=== PATIENT | female | born 1940 | race Caucasian/White ===

== ENCOUNTER → 2017-04-13 22:29 | Outpatient (CLI) | payer MEDICARE, OTHER, MEDICAID ==
[2017-01-15 12:21] VITALS: BMI 32.6
[~2017-04-13 22:29] MED LIST: ASCORBIC ACID500 MG PEG; BAYER CHEWABLE81 MG PEG; BROVANA15 MCG/2 M INH; CALCIUM 600+D T1 TA1 PEG; CARAFATE1 G PEG; CATAPRES0.1 MG PEG; CELEBREX200 MG PEG; DOCUSATE S50 MG/5 ML PO; ESTRACE1 MG PEG; FEOSOL LIQ300 MG/5 M PEG; FISH OIL 1,0001 CA1 PEG; GABAPENTIN100 MG PEG; IPRAT-ALBUT 0.5-3 ML UPD; ISOSORBIDE MONO30 M1 PEG; KLONOPIN1 MG PO; LASIX40 MG PEG; LIPITOR10 MG PEG; LUMIGAN 0.01%2.5 ML EACH EYE; MELATONIN 10 M1 EACH PEG; METOPROLOL TART50 MG PEG; METROGEL 0.75 %45 GM TOPICAL; MIRAPEX0.125 MG PEG; MORPHINE IMMEDI15 MG PEG; NITROSTAT0.4 MG SL; NORVASC10 MG PEG; ONCOLOGY MOUTHWA5 ML PO; PEPCID20 MG PEG; POTASSIUM20 MEQ/15 PEG; PRENATAL COMPLE1 TAB PEG; PROBIOTIC1 EAC1 PEG; PROTONIX40 MG PEG; PULMICORT0.5 MG/21 INH; SENNA PLUS TA1 UDTAB PEG; SINEMET 25-1001 EACH PEG; SINEMET CR 50-1 EACH PEG; SINEQUAN50 MG PEG; SINGULAIR10 MG PEG; STELAZINE5 MG PEG; TUMS500 MG PEG; TUSSIONEX PENN473 ML PEG; VIBRAMYCIN 100100 MG PEG; VITAMIN E400 UNI2 PEG; XOPENEX 1.1.25 MG/3 UPD; ZANAFLEX2 M1 PEG; ZOFRAN4 MG PEG
[2017-04-13 22:46] LABS: APPEARANCE CLOUDY (CLEAR); BILIRUBIN NEGATIVE (NEGATIVE); COLOR YELLOW (YELLOW); GLUCOSE NEGATIVE (NEGATIVE); KETONE NEGATIVE (NEGATIVE); LEUKOCYTE ESTERASE 2+ (NEGATIVE); NITRITE NEGATIVE (NEGATIVE); PROTEIN NEGATIVE (NEGATIVE); UROBILINOGEN NORMAL (NORMAL)
[2017-04-13 22:47] LABS: BACTERIA MANY /hpf (NONE SEEN); EPITHELIAL CELLS 0-5 /hpf (0-5); RED CELLS - URINE 0-5 /hpf (0-5)
== END | disposition home or self-care (01) ==
LOC: D.LABREF 22:29
PROVIDERS: Family Medicine
DX: N39.0 Urinary tract infection, site not specified (principal)

== ENCOUNTER 2017-08-14 20:49 | Inpatient (IN) | payer MEDICARE, OTHER, MEDICAID ==
[2017-08-14 22:55] LABS: MCH 31.3 pg (26.0-34.0); MCHC 34.1 g/dL (31.0-37.0); MCV 91.7 fL (80.0-100.0); MEAN PLATELET VOLUME 10.4 fL (7.4-10.4); PLATELET COUNT 268 10x3/uL (130-400); RBC 4.47 10x6/uL (4.00-5.40); RDW 14.7 % (11.5-14.5); WBC 21.1 10x3/uL (4.8-10.8)
[2017-08-14 23:01] LABS: ALBUMIN 3.2 g/dL (3.4-5.0); ALKALINE PHOSPHATASE 130 U/L (46-116); ALT (SGPT) 23 U/L (10-68); BILIRUBIN - TOTAL 0.66 mg/dL (0.2-1.3); CALC OSMOLALITY 278 mosm/kg (275-300); CALCIUM 9.3 mg/dL (8.5-10.1); CHLORIDE - SERUM 100 mmol/L (98-107); CREATININE - SERUM 0.9 mg/dL (0.6-1.3); GLUCOSE 133 mg/dL (74-106); POTASSIUM - SERUM 3.7 mmol/L (3.5-5.1); PROTEIN - SERUM 7.4 g/dL (6.4-8.2); SODIUM 138 mmol/L (136-145); UREA NITROGEN 14 mg/dL (7-18); eGFR NON AFRICAN AMERICAN 64 mL/min (90-120)
[2017-08-14 23:09] LABS: AMYLASE - SERUM 24 U/L (25-115); LIPASE 93 U/L (73-393); PRO BNP 198 pg/mL (0-450)
[2017-08-14 23:12] LABS: TROPONIN-I < 0.017 ng/mL (0.000-0.060)
[2017-08-14 23:31] LABS: EOSINOPHILS 1 % (0-7); LYMPHOCYTES 14 % (15-50); MONOCYTES 5 % (2-11); NEUTROPHILS 76 % (40-80); PLATELET ESTIMATE NORMAL
[2017-08-14 23:56] LABS: APPEARANCE CLEAR (CLEAR); BILIRUBIN NEGATIVE (NEGATIVE); COLOR YELLOW (YELLOW); GLUCOSE NEGATIVE (NEGATIVE); KETONE NEGATIVE (NEGATIVE); NITRITE NEGATIVE (NEGATIVE); PROTEIN NEGATIVE (NEGATIVE); SPECIFIC GRAVITY 1.005 (1.005-1.020); UROBILINOGEN NORMAL (NORMAL)
[2017-08-14 23:57] LABS: BACTERIA NONE SEEN /hpf (NONE SEEN); EPITHELIAL CELLS 0-5 /hpf (0-5); RED CELLS - URINE NONE SEEN /hpf (0-5); WHITE CELLS - URINE 0-5 /hpf (0-5)
--- NOTE | 2017-08-15 01:20 | NUR ---
RECEIVED FROM ER, WILL ASSUME CARE OF PT, [id number], 02-3L, IV-L.CHEST-PORT, BED IS LOW, SRX2, CALL LIGHT IN REACH, PLACE ON FALL PER CAUTION, SCD ARE ON, WILL CONTINUE PLAN OF CARE
[2017-08-15] MEDS ORDERED: ENULOSE10 G/15 ML PO (01:40)
[2017-08-15] MEDS ORDERED: HYDROCODONE-APA1 TAB PT (01:41)
[2017-08-15] MEDS ORDERED: FLUTICASONE PRO16 GM NASAL (01:42)
[2017-08-15 03:26] VITALS: BMI 27.5
[2017-08-15 04:00] VITALS: BP 139/69
--- NOTE | 2017-08-15 07:14 | NUR ---
AM ROUNDS- PT IN BED, STATES THAT SHE NEEDS TO BE CLEANED UP, RESP EVEN AND UNLABORED, LT CHEST PORT SL. PT DENIES ANY OTHER NEEDS AT THIS TIME. BED LOW AND WHEELS LOCKED, BEDSIDE RAILS X2, CALL LIGHT IN REACH, NAD NOTED, WILL CONTINUE TO MONITOR. 0720- PROVIDED INCONT CARE FOR INCONT EPISODE. PINK PAD, TOP SHEET, BLANKET, AND GOWN CHANGED AT THIS TIME. DELIVERY DRIVER/SUPERVISOR'S AT BEDSIDE TO DO VITAL SIGNS, NAD NOTED, WILL CONTINUE TO MONITOR.
[2017-08-15 08:16] VITALS: BP 148/57
--- NOTE | 2017-08-15 08:16 | NUR ---
TOP FRAME MAKER REPORTED TEMP OF 100.2, HAD TOP FRAME MAKER APPLY WET WASH CLOTH TO FOREHEAD. WILL CHECK TEMP LATER.
[2017-08-15 11:45] VITALS: BP 153/83
[2017-08-15] MEDS ORDERED: ZANAFLEX2 M1 PEG (12:46)
[2017-08-15] MEDS ORDERED: SINEQUAN50 MG PEG (12:47)
[2017-08-15] MEDS ORDERED: FERROUS SULFAT325 MG PEG (12:48)
[2017-08-15] MEDS ORDERED: SINGULAIR10 MG PEG (12:49)
[2017-08-15] MEDS ORDERED: BROVANA15 MCG/2 M INH (12:49)
[2017-08-15] MEDS ORDERED: PULMICORT0.5 MG/21 INH (12:52)
[2017-08-15] MEDS ORDERED: ATROVENT 0.02%2.5 ML UPD (12:54)
[2017-08-15] MEDS ORDERED: ZOFRAN4 MG PEG (12:55)
[2017-08-15] MEDS ORDERED: VITAMIN E400 UNI2 PEG (12:56)
[2017-08-15] MEDS ORDERED: CALCIUM 600 +1 EAC3 PEG (12:57)
[2017-08-15] MEDS ORDERED: FISH OIL 1,0001 CA1 PEG (12:58)
[2017-08-15] MEDS ORDERED: ASCORBIC ACID500 MG PO (12:58)
[2017-08-15] MEDS ORDERED: SENNA LAXATIVE8.6 MG PEG (13:14)
[2017-08-15] MEDS ORDERED: MUCUS RELIEF400 MG PEG (13:14)
[2017-08-15] MEDS ORDERED: PROBIOTIC1 EAC1 PEG (13:15)
[2017-08-15 13:31] LABS: CALCIUM 8.1 mg/dL (8.5-10.1); CARBON DIOXIDE 25.2 mmol/L (21.0-32.0); CHLORIDE - SERUM 101 mmol/L (98-107); CKMB 0.5 U/L (0.0-3.6); CREATINE KINASE 26 UL (21-215); GLUCOSE 125 mg/dL (74-106); POTASSIUM - SERUM 3.7 mmol/L (3.5-5.1); SODIUM 135 mmol/L (136-145)
[2017-08-15 13:34] VITALS: BMI 27.4
[2017-08-15 13:40] LABS: CALC OSMOLALITY 269 mosm/kg (275-300); CREATININE - SERUM 0.6 mg/dL (0.6-1.3); TROPONIN-I < 0.017 ng/mL (0.000-0.060); UREA NITROGEN 10 mg/dL (7-18); eGFR NON AFRICAN AMERICAN > 90 mL/min (90-120)
--- NOTE | 2017-08-15 13:51 | NUR ---
1.5 CANS OF JEVITY 1.2 GIVEN AT THIS TIME. BY GRAVITY, PT TOLERATED FEEDING FINE. ALSO PROVIDED DRESSING CHANGE TO PEG TUBE SITE. REDNESS NOTED TO SITE, YELLOW DISCHAGE FROM SITE. CLEANED SITE WITH WOUND CONSTRUCTION ADMINISTRATOR AND COVERED WITH 4X4 GAUZE AND TAPE. PT PLACED ON TRIOLOGY BY SON, WHO STATES PT NEEDS TO BE ON TRIOLOGY FOR MOST OF THE DAY, ON 3L WHEN NOT USING TRIOLOGY. PT DENIES ANY NEEDS AT THIS TIME. CALL LIGHT IN REACH, NAD NOTED, WILL CONTINUE TO MONITOR.
[2017-08-15 14:10] LABS: BASOPHILS 0.2 % (0-2); EOSINOPHILS 0.8 % (0-7); HEMATOCRIT 41.3 % (36.0-48.0); IMMATURE GRANULOCYTES 0.4 % (0-5); LYMPHOCYTES 8.1 % (15-50); MCH 30.8 pg (26.0-34.0); MCHC 33.9 g/dL (31.0-37.0); MEAN PLATELET VOLUME 10.2 fL (7.4-10.4); NEUTROPHILS 83.5 % (40-80); RBC 4.54 10x6/uL (4.00-5.40); RDW 14.6 % (11.5-14.5)
[2017-08-15 14:13] LABS: PLATELET COUNT 182 10x3/uL (130-400); WBC 12.8 10x3/uL (4.8-10.8)
--- NOTE | 2017-08-15 15:15 | NUR ---
IVPB DOXYCYCLINE HUNG AT THIS TIME, SOLU- MEDROL GIVEN ORDERED. PT DENIES ANY NEEDS AT THIS TIME. TRIOLOGY IN USE. NAD NOTED, WILL CONTINUE TO MONITOR.
[2017-08-15 16:00] VITALS: BP 157/77
--- NOTE | 2017-08-15 16:01 | NUR ---
650MG OF TYLENOL GIVEN FOR TEMP OF 101.7, VIA PEG TUBE. ALSO PLACED A WET WASHCLOTH TO PT'S FOREHEAD. PT DENIES ANY NEEDS AT THIS TIME. CALL LIGHT IN REACH, NAD NOTED, WILL CONTINUE TO MONITOR.
--- NOTE | 2017-08-15 18:25 | NUR ---
TEMP NOW 98.5 AFTER TYLENOL WAS GIVEN. PT IN BED, TRIOLOGY IN USED. PT DENIES ANY NEEDS AT THIS TIME. CALL LIGHT IN REACH, NAD NOTED, WILL CONTINUE TO MONITOR.
[2017-08-15 19:03] LABS: CREATINE KINASE 19 UL (21-215); TROPONIN-I < 0.017 ng/mL (0.000-0.060)
--- NOTE | 2017-08-15 19:32 | NUR ---
PT ASLEEP. RESPIRATIONS EVEN AND UNLABORED. RR 28. PT ON 3L BIPAP. BED LOW AND CALL LIGHT IN REACH. SCD'S PUT ON BILATERAL LOWER EXTREM. PT HAS NO S//S OF DISTRESS. WILL CPOC
[2017-08-15 20:00] VITALS: BP 159/74
--- NOTE | 2017-08-15 21:37 | NUR ---
PT AAO X4. PT ASKED FOR BEDPAN TO URINATE. URINE SAMPLE COLLECTED. PT WASHING FACE OFF WITH COOL WASHCLOTH. PT SWEATING/ HAS SWEAT ON PILLOW AND HAIR ON BACK OF HEAD. PT HAS 3L OF O2 NC. WILL PUT BIPAP BACK ON IN A MOMENT. PT DENIES ANY NEEDS. CRUSHING MEDS TO ADMINISTER THROUGH PEG. PT HAS NO S/S OF DISTRESS. WILL CPOC
--- NOTE | 2017-08-15 22:49 | NUR ---
PT RESIDUAL CHECK, 120ML. WILL HOLD MEDS UNTIL BELOW 100ML. PULLED PT UP IN BED AND RAISED PT HOB TO 50. PT TOOK OF BIPAP. 3L OF O2 NC. PT INFUSAPORT TO LEFT CHEST PATENT. DRSG CDI. WILL RECHECK RESIDUAL FROM PEG TUBE IN AN HOUR. WILL UPDATE EMAR OF SITUATION. PT ONLY NEED IS SOMETHING FOR HER HEAD HEATH. WILL CHECK ORDERS. PT HAS NO S/S OF DISTRESS. BED LOW AND CALL LIGHT IN REACH. WILL CPOC
--- NOTE | 2017-08-15 23:37 | NUR ---
PT RESIDUAL IS 140ML. STILL HOLDING MEDS. WILL SPEAK AGAIN WITH CHARGE NURSE YURY PERALTA. ABOUT NEXT STEPS. PT HAS BIPAP BACK ON . RESPIRATIONS UNLABORED. UNEVEN. PT DENIES ANY NEEDS. WILL CPOC
--- NOTE | 2017-08-16 00:34 | NUR ---
SPOKE WITH CHARGE NURSE YURY REGARDING THE RESIDUAL. WENT THROUGH MEDS AND PICKED ONLY PRIORITY MEDS. WILL LIST AT END OF NOTE. WASTED MEDS THAT WERE ALREADY CRUSHED R/T THE AMOUNT OF WATER. RECRUSHED THESE SELECTED MEDS. AND ADMINISTERED WITH 60ML TOTAL. AND FLUSHED WITH 30ML TOTAL. WILL RECHECK RESIDUAL. GAVE PT ORAL CARE. SWAB TO MOIST MOUTH AND A MOUTH MOISTURIZER. PT DENIES ANY OTHER NEEDS AT THIS TIME. PT SWITCHED BACK TO 3L NC. SCD'S ON BILATERAL. HOB 30. ROCEPHIN DONE. INFUSAPORT FLUSHED AND S/L. PT HAS NO S/S OF DISTRESS. WILL CPOC MEDS GIVEN ARE:KLONOPIN, CATAPRES, LOPRESSOR. STELAZINE, SINEMET, SINEQUAN. AND TYLENOL.
[2017-08-16 02:33] LABS: CREATINE KINASE 24 UL (21-215); TROPONIN-I < 0.017 ng/mL (0.000-0.060)
[2017-08-16 04:00] VITALS: BP 148/83
[2017-08-16 05:24] LABS: ANION GAP 12.8 mmol/L (8-16); CALCIUM 9.3 mg/dL (8.5-10.1); CARBON DIOXIDE 25.2 mmol/L (21.0-32.0)
[2017-08-16 05:28] LABS: BASOPHILS 0 % (0-2); EOSINOPHILS 0.1 % (0-7); HEMATOCRIT 40.8 % (36.0-48.0); IMMATURE GRANULOCYTES 0.2 % (0-5); LYMPHOCYTES 8.9 % (15-50); MCH 30.6 pg (26.0-34.0); MCHC 34.3 g/dL (31.0-37.0); MCV 89.3 fL (80.0-100.0); MEAN PLATELET VOLUME 10.2 fL (7.4-10.4); MONOCYTES 0.8 % (2-11); PLATELET COUNT 213 10x3/uL (130-400); RBC 4.57 10x6/uL (4.00-5.40); RDW 14.4 % (11.5-14.5); WBC 9.6 10x3/uL (4.8-10.8)
[2017-08-16 05:38] LABS: CREATININE - SERUM 0.8 mg/dL (0.6-1.3)
--- NOTE | 2017-08-16 06:46 | NUR ---
PT RESIDUAL 19ML GAVE PT CARAFATE AND SOLU-MED ORDERED. PT WANTS BIPAP OFF. PT ON 3L NC. PT DENIES ANY NEEDS. NO S/S OF DISTRESS. WILL CPOC
--- NOTE | 2017-08-16 07:30 | NUR ---
REPORT RECIEVED. RR EVEN AND UNLABORED. PT IS DIFFIUCLT TO UNDERSTAND AT TIMES, BUT IS ALERT AND ORIENTED X4. WILL CTM.
[2017-08-16 08:00] VITALS: BP 144/75
--- NOTE | 2017-08-16 08:52 | NUR ---
GAVE PT INTERNAL FEEDING AND MEDS. CHECKED RESIDUAL PRIOR TO ADMINISTRATION. LESS THAN 20MLS NOTED RESIDUAL. PT REPORTS "FEELING HUNGRY." WILL CTM.
[2017-08-16 12:00] VITALS: BP 134/70
--- NOTE | 2017-08-16 13:00 | NUR ---
PT INSTRUCTED THAT URINE SAMPLE NEEDED. EXPLAINED HOW TO COMPLETE AND OBTAIN SPECIMEN.
--- NOTE | 2017-08-16 14:23 | NUR ---
PTS FAMILY MEMBER (SON) APPROACHED NURSES STATION REQUESTING PT UPDATE. GAVE GENERAL UPDATE ON PT STATUS PER MY ASSESSMENT. REQUESTED TO KNOW X-RAY RESULTS, READ RESULTS TO FAMILY MEMBER. WILL CTM.
[2017-08-16 16:00] VITALS: BP 152/95
--- NOTE | 2017-08-16 17:52 | NUR ---
PT RESTING QUIETLY, RR EVEN AND UNLABORED. RESIDUAL CHECKED PRIOR TO ADMINISTERING EVENING FEED, LESS THAN 10 RESIDUAL NOTED. WILL GIVE REPORT ON PT CONDTION FOR THE DAY.
--- NOTE | 2017-08-16 19:32 | NUR ---
PT RESTING IN BED. HEAD DOWN WITH NO PILLOW UNDER HEAD. FEET ELEVATED. ASKED PT IF I COULD STRAIGHTEN HER UP IN BED AND MAKE HER COMFORTABLE. PT STATED SHE IS COMFORTABLE AND DOESNT WANT TO MOVE BECAUSE HER NECK HURTS. PT STATES SHE TAKES NORCO BID AT HOME. PT IS ON 3L NC. TOLD PT I WILL BRING HER TYLENOL WILL 2100 MEDS. OFFERED PT ICE AND HEAT SHE DECLINED BOTH. PT HAS NO S/S OF DISTRESS. WILL CPOC
[2017-08-17 04:00] VITALS: BP 157/68
--- NOTE | 2017-08-17 06:18 | NUR ---
PT ASLEEP. RESPIRATIONS 28. SHALLOW. EVEN AND UNREGULAR. PT HAS TECH IN ROOM TO OBTAIN VIATLS. PT WAKES TO VERBAL STIMULA. PT DENIES ANY NEEDS. NO S/S OF DISTRESS. WILL CPOC
--- NOTE | 2017-08-17 06:30 | NUR ---
TOOK PT OFF OF BYPAP. PUT ON 3L NC. PT STILL C/O PAIN IN NECK. TOLD PT I WILL HAVE ONCOMING NURSE TALK WITH CLIVE WHEN SHE GETS HERE ABOUT SOMETHING FOR PAIN. PT STATES IT HURTS AND NEEDS NORCO. OFFERED PT ICE AND HEAT. SHE DECLINED. WILL PASS IN REPORT PAIN MANAGEMENT COMPLICATION. PT HAS NO S/S OF DISTRESSS. WILL CPOC
[2017-08-17 06:57] LABS: BASOPHILS 0 % (0-2); EOSINOPHILS 0 % (0-7); HEMATOCRIT 39.3 % (36.0-48.0); HEMOGLOBIN 13.2 g/dL (12-16); IMMATURE GRANULOCYTES 0.3 % (0-5); MCH 30.8 pg (26.0-34.0); MCHC 33.6 g/dL (31.0-37.0); MEAN PLATELET VOLUME 9.9 fL (7.4-10.4); MONOCYTES 2.5 % (2-11); NEUTROPHILS 90.2 % (40-80); RBC 4.29 10x6/uL (4.00-5.40); RDW 14.4 % (11.5-14.5)
[2017-08-17 06:59] LABS: MCV 91.6 fL (80.0-100.0); PLATELET COUNT 268 10x3/uL (130-400); WBC 17.9 10x3/uL (4.8-10.8)
[2017-08-17 07:07] LABS: ANION GAP 10.5 mmol/L (8-16); CALCIUM 9.6 mg/dL (8.5-10.1); CARBON DIOXIDE 30.9 mmol/L (21.0-32.0); CREATININE - SERUM 0.9 mg/dL (0.6-1.3); POTASSIUM - SERUM 4.4 mmol/L (3.5-5.1)
--- NOTE | 2017-08-17 07:20 | NUR ---
REPORT RECIVED. RR EVEN AND UNLABORED. PT DENIES NEEDS AT THIS TIME. PT RESTING QUILETY, WILL CTM.
[2017-08-17 08:00] VITALS: BP 129/61
[2017-08-17 12:00] VITALS: BP 124/59
--- NOTE | 2017-08-17 12:20 | NUR ---
240 OF FEED GIVEN, RESIDUAL IS 160. CALLED DIETARY AND VERIFIED NEED TO HOLD FEED FOR RESIDUAL. REPORTED THAT IT WAS FINE IF I GAVE 1 CAN OF FEED.
--- NOTE | 2017-08-17 14:30 | NUR ---
CHANGED DRESSING AROUND PEG TUBE. APPLIED 4X4 AND TAPE. INITIALED AND DATED.
--- NOTE | 2017-08-17 15:42 | NUR ---
Patient Name: COMFORT DHILLON Admission Status: ER Accout number: [id number] Admission Date: 08-14-2017 : 1940 Admission Diagnosis:SHORTNESS OF BREATH Attending: ARIANA MILLS Current LOS: 3 Anticipated DC Date: Planned Disposition: Home WITH HOME HEALTH Primary Insurance: MEDICARE A & B PLANNED EXTERNAL PROVIDER: [facility] Discharge Planning Comments: * Is the patient Alert and Oriented? Yes 0 * How many steps to enter\exit or inside your home? 2 W/RAMP 0 * PCP DR. BARCENAS 0 * Pharmacy [facility] 0 * Preadmission Environment Home Alone 0 * ADLs Independent 0 * Equipment Cane Nebulizer Rolling Walker 0 * Other Equipment HOME AND PORTABLE OXYGEN [facility] - MEDICAL EQUIPMENT PROVIDER PREFERNECE 0 * List name and contact numbers for known caregivers / representatives who currently or will assist patient after discharge: MYA LEE, SON/POA, 0 * Community resources currently utilized Home Health Private Duty Care 0 * Please name any agencies selected above. [facility], 7 DAYS PER WEEK, ABOUT 6 HOURS PER DAY, 4 ON WEEKEND DAYS. 0 * Additional services required to return to the preadmission environment? No 0 * Can the patient safely return to the preadmission environment? Yes 0 * Has this patient been hospitalized within the prior 30 days at any hospital? No 0 CM MET WITH PT IN ROOM TO DISCUSS DISCHARGE PLANNING AND NEEDS. PT REPORTS LIVING AT HOME INDEPENDENTLY AND ALONE. PT REPORTS HAVING PERSONAL CARE WITH SUPERIOR DAILY FOR ABOUT 6 HOURS AND ABOUT 4 HOURS ON WEEKEND DAYS. PT HAS ALL NEEDED MEDICAL EQUIPMENT FROM [facility] AND HAS [facility] FOR NURSING ONLY. PT HAS CM DISCUSSED AVAILABILITY OF HOME HEALTH, REHAB SERVICES AND MEDICAL EQUIPMENT. PT REPORTS PLANS TO GO HOME WITH CONTINUED HOME HEALTH AND PERSONAL CARE; PT DENIES NEED OF REHAB SERVICES. PT REPORTS HER NEIGHBOR WILL PICK HER UP FOR DISCHARGE HOME. IMPORTANT MESSAGE FROM MEDICARE PROVIDED AND EXPLAINED. FOR DISCHARGE, NOTIFY [facility] AT [phone]; FAX DISCHARGE INFORMATION TO [facility] AT [phone]. Gasoline Pump Installer: Charles Murphy
[2017-08-17 16:00] VITALS: BP 137/73
--- NOTE | 2017-08-17 16:00 | NUR ---
SPOKE TO PTS FAMILY MEMEBER ABOUT PT CONDITION. READ FAMILY MEMEBER RESULTS OF LABS PER REQUEST. GAVE A QUICK UPDATE ON PT CONDITION PER REQUEST. WILL CTM.
--- NOTE | 2017-08-17 18:14 | NUR ---
PT RESTING QUIETLY, RR EVEN AND UNLABORED. PT DENIES NEEDS AT THIS TIME. WILL GIVE REPORT ON PT CONDITION FOR THE DAY.
--- NOTE | 2017-08-17 19:37 | NUR ---
PT ASLEEP. RESPIRATIONS EVEN AND UNLABORED. PT ON 3L NC. NS WITH ANTIBIOTIC RUNNING AT 100 TO LEFT INFUSAPORT. PT BED IS LOW AND CALL LIGHT IN REACH. WILL CPOC
--- NOTE | 2017-08-18 00:20 | NUR ---
PT HAD AN INCONT EPISODE. PT CHANGED. CLEAN PAD AND GOWN. PT CLEANED. PULLED PT UP IN BED AND REPOSITIONED TO THE RIGHT. PT C/O PORT ACCESS. AREA MORE SWOLLEN THAN YESTURDAY. PORT FLUSHES PERFECTLY. PORT DOES NOT DRAW BACK, BUT NEVER DID. PUT WARM COMPRESS ON AREA TO SEE IF SWELLING WILL DECREASE. PT HAS VIBRO AT 0300. I AM CONCERNED THAT PORT COULD BE MALFUNCTIONING. MACHINIST JOB SETTER NOTIFIED. SHE STATED TO PUT THE WARM COMPRESS AND CHECK ABOUT IV ACCESS. WILL ASK PT ABOUT IV ACCESS AND TRY AND OBTAIN ACCESS SOON ABLE. PT DENIES ANY NEEDS. NO S/S OF DISTRESS. WILL CPOC PUT SCD'S ON BILATERAL LOWER EXTREM
--- NOTE | 2017-08-18 00:24 | NUR ---
PUT PT BIPAP ON. PT DENIES ANY NEEDS. STILL C/O LEFT BREAST PAIN. WILL CPOC
[2017-08-18 01:53] VITALS: BP 136/65
[2017-08-18 06:01] VITALS: BP 103/52
--- NOTE | 2017-08-18 06:42 | NUR ---
PT SITTING UP IN CHAIR. PT DENIES ANY NEEDS. CALL LIGHT IN REACH. WILL CPOC
[2017-08-18 07:15] LABS: BASOPHILS 0 % (0-2); EOSINOPHILS 0 % (0-7); HEMATOCRIT 41.7 % (36.0-48.0); HEMOGLOBIN 13.8 g/dL (12-16); IMMATURE GRANULOCYTES 0.4 % (0-5); LYMPHOCYTES 7.6 % (15-50); MCH 30.9 pg (26.0-34.0); MCHC 33.1 g/dL (31.0-37.0); MCV 93.3 fL (80.0-100.0); MEAN PLATELET VOLUME 10.4 fL (7.4-10.4); MONOCYTES 1.9 % (2-11); NEUTROPHILS 90.1 % (40-80); PLATELET COUNT 263 10x3/uL (130-400); RBC 4.47 10x6/uL (4.00-5.40); RDW 14.2 % (11.5-14.5); WBC 14.2 10x3/uL (4.8-10.8)
[2017-08-18 07:22] LABS: ANION GAP 9.5 mmol/L (8-16); CALCIUM 9.5 mg/dL (8.5-10.1); CARBON DIOXIDE 29.9 mmol/L (21.0-32.0); CREATININE - SERUM 0.8 mg/dL (0.6-1.3); POTASSIUM - SERUM 4.4 mmol/L (3.5-5.1)
[2017-08-18 08:19] VITALS: BP 115/60
--- NOTE | 2017-08-18 08:45 | NUR ---
AM ROUNDS - PT SITTING UP IN THE CHAIR AT THIS TIME. MONITOR SHOWING SB, HR 56. PT REFUSSES SCD. LEFT CHEST PORT. 3L O2 VIA NC. BED AT LOWEST POSITION. CALL BEAR IN USE/REACH. SIDE RAILS UP X2. NO NEEDS AT [facility] TIEM. WILL CONTINUE TO MONITOR
[2017-08-18 11:46] VITALS: BP 125/53
--- NOTE | 2017-08-18 12:26 | NUR ---
BREAKFAST - 1.5 CANS OF JEVITY 1.2. CHECKED RESIDUAL BEFORE, 6CC. WILL CONTINUE TO MONITOR
--- NOTE | 2017-08-18 12:28 | NUR ---
LUNCH - CHECKED RESIDUAL AND GOT BACK 55CC. DID NOT GIVE THE 1.5 CANS OF JEVITY 1.2 AT THIS TIME. WILL CONTINUE TO MONITOR
--- NOTE | 2017-08-18 14:58 | NUR ---
PT GOT BACK INTO THE BED. STATES SHE FEELS GOOD ENOUGH TO GO HOME. NO NEEDS AT THIS TIME. WILL CONTINUE TO MONITOR
[2017-08-18 16:01] VITALS: BP 121/56
[2017-08-18 20:00] VITALS: BP 125/61
[2017-08-19] VITALS: BP 132/67
[2017-08-19 04:00] VITALS: BP 141/69
[2017-08-19 06:58] LABS: BASOPHILS 0.1 % (0-2); EOSINOPHILS 0 % (0-7); HEMATOCRIT 41.2 % (36.0-48.0); HEMOGLOBIN 13.5 g/dL (12-16); IMMATURE GRANULOCYTES 0.3 % (0-5); MCH 30.8 pg (26.0-34.0); MCHC 32.8 g/dL (31.0-37.0); MCV 93.8 fL (80.0-100.0); MEAN PLATELET VOLUME 10.1 fL (7.4-10.4); MONOCYTES 2.9 % (2-11); NEUTROPHILS 86.7 % (40-80); RBC 4.39 10x6/uL (4.00-5.40); RDW 13.7 % (11.5-14.5)
[2017-08-19 07:00] LABS: PLATELET COUNT 150 10x3/uL (130-400); WBC 9.2 10x3/uL (4.8-10.8)
[2017-08-19 07:09] LABS: CALC OSMOLALITY 286 mosm/kg (275-300); CALCIUM 9.1 mg/dL (8.5-10.1); CARBON DIOXIDE 24.2 mmol/L (21.0-32.0); CHLORIDE - SERUM 104 mmol/L (98-107); CREATININE - SERUM 0.7 mg/dL (0.6-1.3); POTASSIUM - SERUM 4.4 mmol/L (3.5-5.1); SODIUM 136 mmol/L (136-145); UREA NITROGEN 29 mg/dL (7-18); eGFR NON AFRICAN AMERICAN 86 mL/min (90-120)
[2017-08-19 07:10] LABS: GLUCOSE 267 mg/dL (74-106)
--- NOTE | 2017-08-19 07:10 | NUR ---
RECEIVED REPORT. ASSUMED CARE OF PATIENT. RESTING WELL WITH EYES CLOSED. RECEIVING BREATHING TX AT THIS TIME. RESP EVEN AND UNLABORED. EASILY AROUSED. NO DISTRESS.
--- NOTE | 2017-08-19 07:55 | NUR ---
BOLUS FEEDING COMPLETE AT THIS TIME. 1.5 CANS OF JEVITY 1.2 ADMINISTERED ORDERED. PLACEMENT VERIFIED BY ASPIRATION AND ASCULATION. 3 ML RESIDUAL. TOLERATED FEEDING WELL. PATIENT REMAINS SITTING UP IN BED AT THIS TIME AFTER COMPLETING BOLUS.
[2017-08-19 07:58] VITALS: BP 176/85
[2017-08-19 11:14] VITALS: BP 124/61
--- NOTE | 2017-08-19 11:58 | NUR ---
ASSISTED OOB TO CHAIR AT BEDSIDE. TOLERATED BOLUS WELL. ONLY ONE CAN OF JEVITY 1.2 ADMINISTERED DUE TO 30 CC RESIDUAL. NO DISTRESS. CALL LIGHT AND ALL PERSONAL ITEMS PLACED WITHIN REACH. IV ABX INFUSING AT THIS TIME.
--- NOTE | 2017-08-19 12:35 | NUR ---
PATIENT UP AMBULATING IN ROOM, OXYGEN, IV TUBING, PHONE CORD ALL TANGLED. UNTANGLED LINES. ASSISTED PATIENT TO RESTROOM AND WITH INCONTINENT CARE. PATIENT SITTING TO CHAIR AT BEDSIDE AT THIS TIME. NO DISTRESS.
--- NOTE | 2017-08-19 15:07 | NUR ---
PATIENT COMPLAINING THAT SHE IS HUNGRY. RESIDUAL CHECK. ZERO RESIDUAL. ONE CAN OF JEVITY 1.2 GIVEN AT THIS TIME. PATIENTS SON ALSO CALLED TO CHECK ON HER BECAUSE SHE CALLED HIM AND STATED SHE WAS HUNGRY. NO DISTRESS. SITTING IN CHAIR AT BEDSIDE. PATIENT STATES SHE FEELS BETTER AFTER GETTING THE CAN OF JEVITY 1.2
[2017-08-19 16:18] VITALS: BP 121/56
--- NOTE | 2017-08-19 16:41 | NUR ---
TOLERATED FEEDING WELL. ASSISTED PATIENT TO BED. PATIENT RESTING WHILE IN 45 DEGREE ANGLE AT THIS TIME AFTER BEING FED. NO DISTRESS. RESP EVEN AND UNALBORED.
--- NOTE | 2017-08-19 18:17 | NUR ---
RESTING IN BED ON LEFT LATERAL SIDE WITH EYES CLOSED. NO DISTRESS. EASILY AROUSED.
--- NOTE | 2017-08-19 19:10 | NUR ---
RECIEVED SHIFT REPORT. PT IS SITTING UP IN CHAIR. ALERT AND ORIENTED AND ABLE TO VERBALIZE NEEDS. IV IS PATENT AND FLUIDS RUNNING AT KVO. PT REFUSES SCD'S. PT IS AMBULATORY WITH ASSISTANCE. PEG TUBE PATENT WITH SITE C/D/I. PT DENIES ANY PAIN AT THIS TIME. O2 @ 2 PER NASAL CANNULA. NO NEEDS ARE VERBALIZED AT THIS TIME. WILL CONTINUE TO MONITOR. SIDE RAILS ARE UP X 2. BED IS IN LOWEST POSITION. BED ALARM ON FOR SAFETY. CALL LIGHT IS WITHIN REACH.
[2017-08-19 20:00] VITALS: BP 152/71
--- NOTE | 2017-08-19 21:56 | NUR ---
SHIFT ASSESSMENT COMPLETED. NIGHT MEDS GIVEN CRUSHED IN PEG TUBE WITH NO PROBLEMS. NO RESIDUAL AT THIS TIME. BOLUS FEEDING DONE PER ORDER. PT TOLERATED WELL. NO NEEDS ARE VOICED. WILL MONITOR. SIDE RAILS X 2. BED LOW. BED ALARM ON. CALL LIGHT IN REACH.
[2017-08-20 04:00] VITALS: BP 135/61
[2017-08-20 06:07] LABS: BASOPHILS 0 % (0-2); EOSINOPHILS 0 % (0-7); HEMATOCRIT 38.7 % (36.0-48.0); HEMOGLOBIN 13.2 g/dL (12-16); IMMATURE GRANULOCYTES 0.6 % (0-5); LYMPHOCYTES 14.3 % (15-50); MCH 30.3 pg (26.0-34.0); MCHC 34.1 g/dL (31.0-37.0); MCV 88.8 fL (80.0-100.0); MEAN PLATELET VOLUME 10.3 fL (7.4-10.4); NEUTROPHILS 76.1 % (40-80); RBC 4.36 10x6/uL (4.00-5.40); RDW 13.1 % (11.5-14.5); WBC 11.2 10x3/uL (4.8-10.8)
[2017-08-20 06:08] LABS: PLATELET COUNT 115 10x3/uL (130-400)
[2017-08-20 06:17] LABS: CALCIUM 8.8 mg/dL (8.5-10.1); CARBON DIOXIDE 27.5 mmol/L (21.0-32.0); CHLORIDE - SERUM 102 mmol/L (98-107); CREATININE - SERUM 0.6 mg/dL (0.6-1.3); POTASSIUM - SERUM 4.2 mmol/L (3.5-5.1); SODIUM 137 mmol/L (136-145); eGFR NON AFRICAN AMERICAN > 90 mL/min (90-120)
[2017-08-20 06:18] LABS: CALC OSMOLALITY 281 mosm/kg (275-300); GLUCOSE 188 mg/dL (74-106); UREA NITROGEN 20 mg/dL (7-18)
--- NOTE | 2017-08-20 07:07 | NUR ---
AM ROUNDS- PT IN BED, WITH EYES CLOSED RECEIVING UPDRAFT. EASILY AROUSES, PT DENIES ANY NEEDS AT THIS TIME. RESP EVEN AND UNLABORED. LT INFUSAPORT INFUSING NS AT KVO. BED LOW AND WHEELS LOCKED, BEDSIDE RAILS X2, CALL LIGHT IN REACH, NAD NOTED, WILL CONTINUE TO MONITOR.
[2017-08-20 08:00] VITALS: BP 140/61
--- NOTE | 2017-08-20 09:18 | NUR ---
AM MEDS GIVEN VIA PEG TUBE. ALSO PROVIDED 1.5 CANS OF JEVITY 1.2CAL AT THIS TIME. PT TOLERATED FEEDING AND MEDS WELL. CHECKED FOR RESIDUAL AT THE BEGINNING, ZERO RESIDUAL. PT IN BED, DENIES ANY NEEDS AT THIS TIME. CALL LIGHT IN REACH, NAD NOTED, WILL CONTINUE TO MONITOR.
[2017-08-20 12:00] VITALS: BP 135/65
--- NOTE | 2017-08-20 12:03 | NUR ---
MEDS GIVEN ORDERED VIA PEG TUBE. ALSO PROVIDED 1.5CANS OF JEVITY 1.2CAL. PT TOLERATED FEEDING WELL. FLUSHED WITH 60CC OF WATER AFTER FEEDING. PT DENIES ANY NEEDS AT THIS TIME. VISITOR AT [facility], NAD NOTED, CALL LIGHT IN REACH, WILL CONTINUE TO MONITOR.
--- NOTE | 2017-08-20 13:45 | NUR ---
Nutrition Follow Up: Chart reviewed. Nursing reported that pt continues to tolerate TF. Pt currently receiving 1.5 cans Jevity 1.2 4x/d. 60 ml H2O flush before and after each TF. No BM since admit. Wt gain noted. Labs reviewed - Glucose elevated. Meds noted including Solu Medrol, Lasix. Rec continue current TF, water flush regimen. RD following.
--- NOTE | 2017-08-20 14:37 | NUR ---
MEDS GIVEN ORDERED ALSO GAVE NORCO 10MG FOR PAIN LEVEL OF 8/10, IVPB OF DOXYCYCLINE HUNG AT THIS TIME. HELPED PT OT BATHROOM AND BACK TO BED, PT DENIES ANY NEEDS A THIS TIME. CALL LIGHT IN REACH, NAD NOTED, WILL CONTINUE TO MONITOR.
[2017-08-20 16:00] VITALS: BP 104/52
--- NOTE | 2017-08-20 17:31 | NUR ---
RESIDUAL AT THIS TIME WAS 10CC. ADMINISTERED 1.5CANS OF JEVITY 1.2CAL BY GRAVITY AND ADMINISTERED MEDS ORDERED VIA PEG TUBE. PT TOLERATED FEEDING WELL. ALSO PROVIDED DRESSING CHANGE TO PEG TUBE SITE AT THIS TIME, SINCE IT WAS SOILED. PT DENIES ANY NEEDS AT THIS TIME. CALL LIGHT IN REACH, NAD NOTED, WILL CONTINUE TO MONITOR.
[2017-08-20 19:00] VITALS: BP 134/62
--- NOTE | 2017-08-20 19:20 | NUR ---
ROUNDING NOTE: PT IS ALERT AND AWAKE IN BED. SHE IS PLEASANTLY CONFUSED WITH GARBLED SPEECH. SHE IS ON MONIOTR, NSR WITH HR 82. REMAINS ON 2L OXYGEN VIA NC./ NS RUNNING AT 100CC/HR VIA LEFT CHEST INFUSAPORT. BED ALARM ON AND IN USE. PT IS USING CALL BEAR. DENIES ANY NEEDS. WILL CONT TO MONITOR.
[2017-08-21] VITALS: BP 124/60
--- NOTE | 2017-08-21 04:00 | NUR ---
ATTEMPTED TO HANG PT'S 0300 DOSE OF IV VIBRAMYCIN VIA PT'S LEFT CHEST INFUSAPORT; HOWEVER, PUMP STATING THAT THERE IS AN OCCULSION ON PATIENT SIDE, SO IV ABX WILL NOT INFUSE. DAY NURSE REPORTED THAT WE CANNOT DRAW BLOOD FROM PORT. ALL CLAMPS ARE OPEN. PORT IS NOT FLUSHING. SUSPECT THAT THE NEEDLE MAY BE OUT OF PLACE, SO PORT DEACCESSED. PT TOLERATED WELL. ATTEMPTED TO REACCESS PORT, BUT ENCOUNTERED THE SAME PROBLEM. 20G PERIPHERAL IV SITE STARTED TO RIGHT FOREARM. VIBRAMYCIN INFUSED. WILL CONT TO MONITOR.
[2017-08-21 04:10] VITALS: BP 137/65
--- NOTE | 2017-08-21 07:30 | NUR ---
RECEIVED PT SITTING IN CHAIR WATCHING TV RESP UNLABORED DENIES ANY NEEDS OR DISCOMFORT PT DOES GET SOB ON EXERTION
[2017-08-21 07:55] VITALS: BP 140/58
--- NOTE | 2017-08-21 09:15 | NUR ---
ACCESSED INFUSAPORT WITH 19 GA 1 INCH NEEDLE USING STERILE TECHNIQUE PT TOLERATED WELL
[2017-08-21 11:22] VITALS: BP 104/58
--- NOTE | 2017-08-21 11:42 | NUR ---
FSBS 251
[2017-08-21 15:55] VITALS: BP 126/57
[2017-08-21 19:00] VITALS: BP 125/56
--- NOTE | 2017-08-21 22:30 | NUR ---
1899-REPORT RECIEVED. 1914-SHIFT ASSESSMENT COMPLETE, PLEASE SEE FLOW SHEETS FOR DETAILS. C/O PAIN IN BACK 06/21 AND GETTING BETTER STATED SHE JUST HAD A PAIN PILL. DENIES ANY NEEDS ATT. BED LOW AND LOCKED, CALL LIGHT IN REACH. WILL CPOC. 2100-G-TUBE ASPIRATED FOR INSPECTION OF PROPER PLACEMENT, GASTRIC CONTENCE ASPIRATED AND 5ML RETURNED. MEDS CRUSHED AND TUBE FEED PROVIDED. PT TOLERATED WELL. REQUESTED ORAL CARE KIT, THIS WAS PROVIDED. DENIES ANY OTHER PAIN/NEEDS ATT. BED LOW AND LOCKED, CALL LIGHT IN REACH. WILL CPOC.
[2017-08-22 00:55] VITALS: BP 131/69
[2017-08-22 04:02] VITALS: BP 120/60
--- NOTE | 2017-08-22 04:14 | NUR ---
0100-SLEEPING, NO S&S OF DISTRESS, BED LOW AND LOCKED, CALL LIGHT IN REACH. WILL CPOC. 0300-NO CHANGES NOTED. WILL CPOC.
[2017-08-22 06:03] LABS: BASOPHILS 0 % (0-2); EOSINOPHILS 0.1 % (0-7); HEMATOCRIT 40.6 % (36.0-48.0); HEMOGLOBIN 13.8 g/dL (12-16); IMMATURE GRANULOCYTES 0.8 % (0-5); LYMPHOCYTES 8.8 % (15-50); MCH 30.5 pg (26.0-34.0); MCV 89.6 fL (80.0-100.0); MEAN PLATELET VOLUME 9.7 fL (7.4-10.4); MONOCYTES 4.5 % (2-11); NEUTROPHILS 85.8 % (40-80); RBC 4.53 10x6/uL (4.00-5.40); RDW 13.1 % (11.5-14.5); WBC 12.6 10x3/uL (4.8-10.8)
[2017-08-22 06:10] LABS: PLATELET COUNT 222 10x3/uL (130-400)
[2017-08-22 06:20] LABS: CALC OSMOLALITY 279 mosm/kg (275-300); CALCIUM 8.9 mg/dL (8.5-10.1); CHLORIDE - SERUM 99 mmol/L (98-107); CREATININE - SERUM 0.7 mg/dL (0.6-1.3); GLUCOSE 202 mg/dL (74-106); MAGNESIUM - SERUM 2.3 mg/dL (1.8-2.4); PHOSPHOROUS 3.6 mg/dL (2.5-4.9); POTASSIUM - SERUM 4.3 mmol/L (3.5-5.1); SODIUM 136 mmol/L (136-145); UREA NITROGEN 19 mg/dL (7-18); eGFR NON AFRICAN AMERICAN 86 mL/min (90-120)
[2017-08-22 07:45] VITALS: BP 144/67
--- NOTE | 2017-08-22 07:50 | NUR ---
ASSESSMENT PER FLOW SHEET.PT WITHOUT DISTRESS. INSTRUCTED TO CALL FOR NEEDS.CALL LIGHT IN REACH
[2017-08-22 11:37] VITALS: BP 108/51
--- NOTE | 2017-08-22 12:51 | NUR ---
STILL SITTING UP IN CHAIR,WITHOUT DISTRESS.MONITOR
[2017-08-22] MEDS ORDERED: DIFLUCAN200 MG PO (14:25)
--- NOTE | 2017-08-22 15:12 | NUR ---
FOR DISCHARGE: WHEN QUESTIONED ABOUT FLU SHOT, PATIENT WANTED IT. ORDERED.
--- NOTE | 2017-08-22 15:13 | NUR ---
Patient Name: COMFORT DHILLON Encounter No: [id number] : 1940 Primary Insurance: MEDICARE A & B Anticipated DC Date: 08-22-2017 Planned Disposition: Home with Home Health External Planned Provider: [facility] DCP follow-up note: CM RECEIVED DISCHARGE ORDER, MET WITH PT IN ROOM WHO REPORTS AGREEMENT WITH DISCHARGE HOME TODAY, WILL CALL HER SON TO COME AND PICK HER UP SHORTLY. PT IN AGREEMENT FOR [facility] TO RESUME HER NURSING CARE. IMPORTANT MESSAGE FROM MEDICARE PROVIDED AND EXPLAINED. CM NOTIFIED LEYDI OF [employer] [facility] AT [phone]; FAXED DISCHARGE INFORMATION TO [employer] AT [phone]. MACADAM RAKER NURSE NOTIFIED. Casting Machine Service Operator: Charles Murphy
--- NOTE | 2017-08-22 15:52 | NUR ---
CALL TO SHOLA.. DISCHARGE TODAY. HE WILL TRY ARRANGE FOR TENTER FRAME OPERATOR TO BE AT HOUSE AND GET TRANSPORTATION FOR HER BECAUSE HE IS WORKING IN [employer].
--- NOTE | 2017-08-22 17:51 | NUR ---
DISCHARGE INSTRUCTIONS WITH PT AND FAMILY. PORT FLUSHED PER PROTOCOL AND NEDDLE DCD. LEFT UNIT VIA WHEELCHAIR.
--- NOTE | 2017-08-27 11:43 | CN ---
PATIENT NAME:COMFORT LESTER MEDICAL RECORD: [id number] : 42 LOCATION:D. D.2135 ADMIT DATE: 08/14/17 ACCOUNT: [id number] CONSULTING PHYSICIAN: DAINA ROLAND MD REFERRING PHYSICIAN: KATHIE MILLS MD DATE OF CONSULTATION: 08/15/2017 CONSULT REQUESTING PHYSICIAN: Kathie Mills MD REASON FOR CONSULTATION: Acute exacerbation of COPD, pneumonia. HISTORY OF PRESENT ILLNESS: Ms. Lester is a 77-year-old female, very well known to me. The patient was brought in from the home to the ER. She had pneumonia a few days ago, she was running fever of 102, and she has worsening shortness of breath. On evaluation in the ER, she was found that she was hypoxic and she was put on 3 liters nasal cannula. She is coughing. Now, she is very weak and lethargic. REVIEW OF SYSTEMS: As in history of present illness. PAST MEDICAL HISTORY: 1. Chronic obstructive pulmonary disease. 2. Chronic hypoxic respiratory failure. 3. Parkinson disease. 4. Gastroesophageal reflux disease. 5. Dysphagia. 6. Fibromyalgia. 7. Migraine headache. 8. History of glaucoma. 9. Hypertension. 10. History of congestive heart failure. 11. Coronary artery disease. 12. Chronic kidney disease. 13. Obstructive sleep apnea. She is on CPAP machine. PAST SURGICAL HISTORY: 1. Cholecystectomy. 2. Cataract surgery. 3. Herniorrhaphy. 4. Hysterectomy. 5. Colon resection surgery. 6. Status post PEG tube placement. ALLERGIES: SHE IS ALLERGIC TO BARBITURATES, ALBUTEROL, BUSPIRONE, STADOL, VALIUM, DILAUDID, IODINE, LEVAQUIN, LISINOPRIL, LORAZEPAM, COMPAZINE, PHENERGAN, AND DARVOCET. PRESENT MEDICATIONS: She is on Rocephin IV, Zithromax IV. [facility] other [facility] was reviewed. PERSONAL AND SOCIAL HISTORY: The patient is an ex-smoker. She is a nondrinker. FAMILY HISTORY: Noncontributory. PHYSICAL EXAMINATION: CONSULT REPORT [id number] COMFORT LESTER GENERAL: Now, the patient is lying comfortably. She is not in acute distress. VITAL SIGNS: The blood pressure is 153/83, pulse is 97-120, temperature 98.9, T-max 100.2, and SpO2 is 99% on 3 liters nasal cannula. HEENT: Conjunctivae pink. Sclerae nonicteric. NECK: Neck is supple. No JVD. CHEST: There is prolonged expiration with wheezing. There is also bibasilar crackle. HEART: Rhythm regular. Normal sound. No murmur. ABDOMEN: Abdomen is soft. Bowel sounds present. No hepatosplenomegaly. RECTAL: Deferred. EXTREMITIES: No cyanosis, no clubbing, no pedal edema. SKIN: Warm. Normal turgor. CENTRAL NERVOUS SYSTEM: The patient is awake and alert. There is no obvious cranial nerve abnormality. The gait was not tested. LABORATORY DATA: Chest radiograph, there is increased interstitial marking bilaterally. CBC: WBC 21.1, hemoglobin 14, hematocrit 41, and the platelet count 269. Chemistry: Sodium 135, potassium 3.7, BUN is 10, creatinine 0.6, glucose 126. The proBNP is 198. IMPRESSION: 1. Fbqsw-rb-knyxrce hypoxic respiratory failure and acute exacerbation of chronic obstructive pulmonary disease. 2. Pneumonia, possible aspiration with a chronic history of dysphagia. 3. Leukocytosis secondary to pneumonia. 4. Parkinson disease. RECOMMENDATION: 1. I will discontinue Zithromax. Start on doxycycline 100 mg IV b.i.d., Rocephin IV, methylprednisolone IV, Xopenex and ipratropium nebulizer, Brovana and budesonide nebulizer, and supplemental oxygen. The patient can use her BiPAP at night and during the day when she is sleeping. 2. PEG tube feeding. Dr. Mills, thank you for involving me in the care of Ms. Lester. TRANSINT:[id number] Voice Confirmation ID: [id number] DOCUMENT ID: [id number] DAINA ROLAND MD at 1143 CC: AWILDA BARCENAS M.D. [id number] DICTATION DATE: 08/15/17 1428 DEPUTY TREASURER: 08/15/17 1504 DIS IN 08/22/17 [facility] [address] [place] [address]
== END 2017-08-22 18:12 | disposition home health service (06) | DRG 314 ==
LOC: D.ER 20:49 → D.M2 23:48
PROVIDERS: Family Medicine; ADMIT Family Medicine
DX: T80.218A Other infection due to central venous catheter, initial encounter (principal); J69.0 Pneumonitis due to inhalation of food and vomit; J96.21 Acute and chronic respiratory failure with hypoxia; R53.2 Functional quadriplegia; J44.1 Chronic obstructive pulmonary disease with (acute) exacerbation; I13.0 Hypertensive heart and chronic kidney disease with heart failure and stage 1 through stage 4 chronic kidney disease, or unspecified chronic kidney disease; R78.81 Bacteremia; N39.0 Urinary tract infection, site not specified; I50.30 Unspecified diastolic (congestive) heart failure; B37.89 Other sites of candidiasis; G20 Parkinson's disease; K21.9 Gastro-esophageal reflux disease without esophagitis; M79.7 Fibromyalgia; N18.9 Chronic kidney disease, unspecified; I25.10 Atherosclerotic heart disease of native coronary artery without angina pectoris; G47.33 Obstructive sleep apnea (adult) (pediatric); B37.9 Candidiasis, unspecified; B95.8 Unspecified staphylococcus as the cause of diseases classified elsewhere; G25.81 Restless legs syndrome; Z87.891 Personal history of nicotine dependence

== ENCOUNTER → 2017-08-25 19:25 | Outpatient (CLI) | payer MEDICARE, OTHER, MEDICAID ==
[2017-08-15 13:34] VITALS: BMI 27.4
[~2017-08-25 19:25] MED LIST changes: +ASCORBIC ACID500 MG PO; +ATROVENT 0.02%2.5 ML UPD; +CALCIUM 600 +1 EAC3 PEG; +DIFLUCAN200 MG PO; +ENULOSE10 G/15 ML PO; +FERROUS SULFAT325 MG PEG; +FLUTICASONE PRO16 GM NASAL; +HYDROCODONE-APA1 TAB PT; +LINZESS145 MCG PO; +MUCUS RELIEF400 MG PEG; +OMNICEF300 MG PO; +SENNA LAXATIVE8.6 MG PEG
[2017-09-12 13:16] LABS: AMPHOTERICIN B MIC 1.0 ug/mL (())
== END | disposition home or self-care (01) ==
LOC: D.LAB 19:25
PROVIDERS: Family Medicine
DX: J69.0 Pneumonitis due to inhalation of food and vomit (principal); R13.12 Dysphagia, oropharyngeal phase

== ENCOUNTER 2017-09-21 13:37 | Inpatient (IN) | payer MEDICARE, OTHER, MEDICAID ==
[~2017-09-21] VITALS: Ht 162.6 cm; Wt 81.8 kg
[~2017-09-21 13:37] MED LIST changes: -LINZESS145 MCG PO; -OMNICEF300 MG PO
[2017-09-21 14:41] LABS: APPEARANCE CLEAR (CLEAR); COLOR YELLOW (YELLOW)
[2017-09-21 14:42] LABS: BILIRUBIN NEGATIVE (NEGATIVE); GLUCOSE NEGATIVE (NEGATIVE); KETONE NEGATIVE (NEGATIVE); NITRITE NEGATIVE (NEGATIVE); PROTEIN NEGATIVE (NEGATIVE); UROBILINOGEN NORMAL (NORMAL)
[2017-09-21 15:05] LABS: BACTERIA FEW /hpf (NONE SEEN); RED CELLS - URINE 0-5 /hpf (0-5); WHITE CELLS - URINE 0-5 /hpf (0-5)
[2017-09-21 15:09] LABS: BASOPHILS 0.1 % (0-2); EOSINOPHILS 0.7 % (0-7); HEMATOCRIT 41.4 % (36.0-48.0); IMMATURE GRANULOCYTES 0.2 % (0-5); LYMPHOCYTES 16.6 % (15-50); MCH 31.1 pg (26.0-34.0); MCHC 33.8 g/dL (31.0-37.0); MEAN PLATELET VOLUME 9.7 fL (7.4-10.4); MONOCYTES 6.4 % (2-11); PLATELET COUNT 198 10x3/uL (130-400); RDW 14.7 % (11.5-14.5); WBC 12.4 10x3/uL (4.8-10.8)
[2017-09-21 15:19] LABS: ALBUMIN 3.3 g/dL (3.4-5.0); ANION GAP 9.9 mmol/L (8-16); BILIRUBIN - TOTAL 0.73 mg/dL (0.2-1.3); CALCIUM 9.2 mg/dL (8.5-10.1); CARBON DIOXIDE 29.6 mmol/L (21.0-32.0); CREATININE - SERUM 0.8 mg/dL (0.6-1.3); POTASSIUM - SERUM 3.5 mmol/L (3.5-5.1)
--- NOTE | 2017-09-21 18:42 | NUR ---
RECEIVED PT VIA STRETCHER FROM ER STAFF. PT IS ALERT AND ORIENTED BUT HARD TO UNDERSTAND. ON 02 AT 3L VIA NC. IV SEEN TO LEFT CHEST INFUSAPORT. BRUISING SEEN TO BILATERAL ARMS. WILL DO QUICKSTART AND PASS THIS ALONG IN REPORT.
--- NOTE | 2017-09-21 19:26 | NUR ---
PT RESTING IN BED. FAMILY VISITING. PT HAS AN INFUSAPORT TO LEFT CHEST. A PEG TUBE IN LEFT QUADRANT. PT UP WITH STANDBYE ASSIST. PT DENIES ANY NEEDS AT THIS TIME. NO S/S OF DISTRESS. WILL CPOC
[2017-09-21 20:00] VITALS: BP 139/61
[2017-09-22] VITALS: BP 140/63
--- NOTE | 2017-09-22 01:28 | NUR ---
PT C/O HUNGER. 2 CANS OF 285ML PER CAN GIVEN OF JEVITY 1.2 GIVEN WITH A 120 WORTH OF WATER FOR FLUSHS. PT HAD 0 RESIDUAL PRIOR TO GIVING PT JEVITY. PT COUGHING. SET PT UP IN BED FOR 30 MINS. . PT REQUEST HER MEDS THAT SHE TAKES AT NIGHT. WILL CHECK WITH CHARGE NURSE AND HOUSE SUP TO SEE WHO TO CALL. WILL GO THROUGH MEDS AND GET THE PRIORITY MEDS. PT DENIES ANY OTHER NEEDS. NO S/S OF DISTRESS. WILL CPOC
[2017-09-22 05:10] VITALS: BP 139/61; BMI 30.3
--- NOTE | 2017-09-22 07:30 | NUR ---
REPORT RECEIVED. PT RESTING QUIETLY, ASSISTED PT UP TO CHAIR, STANDBY ASSIST. PT IS ALERT AND ORIENTED X4. PT REPORTS PAIN IN HER RIGHT HIP AREA. WILL SPEAK TO MD ABOUT PT REPORT. WILL CTM.
[2017-09-22 08:22] VITALS: BP 163/86
[2017-09-22 10:39] VITALS: Ht 162.6 cm; Wt 81.8 kg
[2017-09-22 12:24] VITALS: BP 144/63
--- NOTE | 2017-09-22 13:00 | NUR ---
SPOKE TO DR. BECKHAM REGARDING PTS DIET. GAVE VERBAL ORDER TO CONSULT SPEECH AND KEEP PT NPO. PT HAS HX OF APSIRATION. PT DID EAT BREAKFAST THIS MORNING AND TOLERATED IT WELL, BUT WILL AWAIT SPEECH THERAPY CONSULTATION PRIOR TO FEEDING THE PATIENT AGAIN.
--- NOTE | 2017-09-22 14:00 | NUR ---
SPOKE TO [facility] REGARDING MEDS NOT BEING AVAILABLE IN [facility]. REPORTED THEY WILL BRING MEDS UP SOON. WILL GIVE WHEN AVAILABLE.
--- NOTE | 2017-09-22 14:30 | NUR ---
CHECKED RESIDUAL, 25 MLS NOTED IN PEG TUBE, GAVE MEDS. RR EVEN AND UNLABORED, WILL CTM.
--- NOTE | 2017-09-22 15:45 | NUR ---
FAMILY APPROACHED THE DESK ASKING ABOUT PT CONDTION. GAVE PT UPDATE PER MY ASSESSMENT. FAMILY VERBALIZED UNDERSTANDING.
--- NOTE | 2017-09-22 17:33 | NUR ---
PT NEEDING BIOTENE FOR DRY MOUTH, CALLED [employer] AND SHE IS TIED UP IN A CODE AND STATES SHE WILL BRING IT WHEN SHE CAN. PROVIDED PT WITH ORAL CARE AND WILL CPOC.
--- NOTE | 2017-09-22 17:47 | NUR ---
PT RESTING QUIETLY, RR EVEN AND UNLABORED. CHECKED RESIDUAL, 0 MLS NOTED. GAVE BOLUS FEED, PT DENIES FURTHER NEEDS.
--- NOTE | 2017-09-22 18:33 | NUR ---
PT RESTING QUIETLY, RR EVEN AND UNLABORED. PT DENIES NEEDS AT THIS TIME. EXPRESSED SATISFACTION WITH CARE. WILL GIVE REPORT ON PT CONDTION FOR THE DAY.
--- NOTE | 2017-09-22 19:41 | NUR ---
PT RECEIVING BREATHING TREATMENT. LAYING ON LEFT SIDE. PT C/O PAIN IN RIGHT HIP AND I TOLD PT SHE HAS A SCHEDULED NORCO AT 2100 AND I WILL BRING IT ALONG WITH A PRN MUSCLE RELAXER. PT DENIES ANY OTHER NEEDS. NO S/S OF DISTRESS. BED LOW AND CALL LIGHT IN REACH. WILL CPOC
[2017-09-22 20:00] VITALS: BP 99/45
--- NOTE | 2017-09-22 22:50 | NUR ---
PT RESIDUAL IS 120. HOLDING MEDS UNTIL RESIDUAL UNDER 100. PT IS GOING TO SIT UP IN CHAIR FOR A WHILE TO SEE IF RESIDUAL DECREASES. PT AMBULATED TO CHAIR WITH STAND BY ASSIST. PT DENIES ANY NEEDS. WILL CHECK RESIDUAL AGAIN AND PUT IN A NOTE. WILL CPOC
--- NOTE | 2017-09-22 23:53 | NUR ---
RESIDUAL RECHECKED. ITS 75ML. MEDS GIVEN AND ONE CAN OF FOOD. PT IS SITTING UP IN THE CHAIR FOR 30 MIN. TO PROMOTE DIGESTION. PT DENIES ANY NEEDS. NO S/S OF DISTRESS. WILL CHECK RESIDUAL PRIOR TO LAYING DOWN.
[2017-09-23] VITALS: BP 101/57
[2017-09-23 04:00] VITALS: BP 115/53
[2017-09-23 06:45] LABS: BASOPHILS 0.1 % (0-2); EOSINOPHILS 1.8 % (0-7); HEMATOCRIT 41.3 % (36.0-48.0); HEMOGLOBIN 13.8 g/dL (12-16); IMMATURE GRANULOCYTES 0.2 % (0-5); LYMPHOCYTES 23.5 % (15-50); MCH 30.9 pg (26.0-34.0); MCHC 33.4 g/dL (31.0-37.0); MCV 92.4 fL (80.0-100.0); MEAN PLATELET VOLUME 10.1 fL (7.4-10.4); NEUTROPHILS 66.4 % (40-80); RBC 4.47 10x6/uL (4.00-5.40); RDW 14.6 % (11.5-14.5)
[2017-09-23 06:46] LABS: PLATELET COUNT 239 10x3/uL (130-400)
[2017-09-23 06:54] LABS: ANION GAP 10.9 mmol/L (8-16); CALCIUM 9.6 mg/dL (8.5-10.1); CARBON DIOXIDE 31.7 mmol/L (21.0-32.0); CREATININE - SERUM 0.9 mg/dL (0.6-1.3); POTASSIUM - SERUM 3.6 mmol/L (3.5-5.1)
--- NOTE | 2017-09-23 09:11 | NUR ---
AM ROUNDS - PT IS IN BED AND AWAKE AT THIS TIME. NO NEEDS. 02 AT 3L VIA NC. LEFT CHEST INFUSAPORT. PEG TUBE TO LEFT SIDE. PT'S SPEACH IS HARD TO UNDERSTAND. BED AT LOWEST POEITION. CALL BEAR IN USE/REACH. WILL OTNINUE TO MONITOR
[2017-09-23 12:04] VITALS: BP 108/55
[2017-09-23 16:12] VITALS: BP 114/56
--- NOTE | 2017-09-23 18:54 | NUR ---
PT IN BED WITH NO NEEDS AT THIS TIME. WILL CONTINUE TO MONITOR
[2017-09-23 20:00] VITALS: BP 98/52
--- NOTE | 2017-09-23 22:01 | NUR ---
PT HAS 270ML OF RESIDUAL AT THIS TIME WILL WAIT 1 HOUR AND RECHECK RESIDUAL TO PASS MEDS .
--- NOTE | 2017-09-23 23:00 | NUR ---
RESIDUAL AT 200ML. WILL WAIT ANOTHER HOUR.
[2017-09-24] VITALS: BP 98/52
--- NOTE | 2017-09-24 01:05 | NUR ---
RESIDUAL 150ML AT THIS TIME. MEDS PASSED.
--- NOTE | 2017-09-24 03:15 | NUR ---
AT THE BEGINNING OF SHIFT, PT WAS ALERT AND ORIENTED X 3 W/ NO NEURO DEFICITS. AT 0315,PT CAME OUT TO THE NURSES DESK WITH APPARENT NEW ONSET OF CONFUSION AND SLURRED SPEECH. SHE HAD PULLED OUT HER PORT ACCESS AND WAS HOLDING IT IN HER HAND. SHE THOUGHT SHE WAS INHER BEDROOM AT HOME. SHE WAS DISORIENTED TO PLACE, TIME (UNAWARE OF MONTH/YEAR), AND SITUATION. HER SPEECH WAS GARBLED AND NONSENSICAL AT TIMES. IN ADDITION, HER LEFT EYE WAS BLOODSHOT WITH A NEW SUBCONJUNCTIVAL HEMORRHAGE. PT DID NOT FALL OR HAVE ANY TRAUMA THAT I AM AWARE OF. I ESCORTED PT BACK TO HER BED, CALLED THE CHARGE NURSE, AND CALLED A RAPID RESPONSE TO ASSESS THE PATIENT. PT'S OXYGEN REAPPLIED. VITAL SIGNS STABLE, BP HIGH BUT WITHIN HER NORMAL RANGE. PT'S CONFUSION CLEARED WITHIN 5-10 MINUTES. PT C/O HEADACHE AND CHEST PAIN. ICU NURSE, RESP THERAPIST, AND ER DOCTOR IN TO ASSESS PATIENT. STAT CXR DONE, WHICH WAS NORMAL. PT'S SX RESOLVED COMPLETELY. PT'S PORT REACCESSED. PT SLEEPING COMFORTABLY WITH O2 AND TRIOLOGY CPAP IN PLACE. PER ER DOCTOR, HER EYE IS NOTHING TO WORRY ABOUT IT WAS MOST LIKELY A SPONTANEOUS HEMORRHAGE POSSIBLY DUE TO VALSALVA MANEUVER. PER MEDICAL TEAM CONSIDERATION FOR CT SCAN OF HEAD, BUT WILL HOLD OFF FOR NOW. NO FURTHER ORDERS. PT SLEEPING COMFORTABLY WITH O2 AND TRIOLOGY CPAP IN PLACE. WILL CONTINUE TO CLOSELY MONITOR.
[2017-09-24 04:00] VITALS: BP 132/62
[2017-09-24 05:42] LABS: CALC OSMOLALITY 283 mosm/kg (275-300); CALCIUM 9.2 mg/dL (8.5-10.1); CARBON DIOXIDE 30.4 mmol/L (21.0-32.0); CHLORIDE - SERUM 103 mmol/L (98-107); GLUCOSE 104 mg/dL (74-106); SODIUM 141 mmol/L (136-145); UREA NITROGEN 20 mg/dL (7-18)
[2017-09-24 05:44] LABS: CREATININE - SERUM 0.6 mg/dL (0.6-1.3); POTASSIUM - SERUM 5.5 mmol/L (3.5-5.1); eGFR NON AFRICAN AMERICAN > 90 mL/min (90-120)
[2017-09-24 07:01] LABS: BASOPHILS 0.2 % (0-2); EOSINOPHILS 2.3 % (0-7); HEMATOCRIT 39.8 % (36.0-48.0); HEMOGLOBIN 13.3 g/dL (12-16); IMMATURE GRANULOCYTES 0.7 % (0-5); LYMPHOCYTES 24.9 % (15-50); MCH 30.2 pg (26.0-34.0); MCHC 33.4 g/dL (31.0-37.0); MCV 90.5 fL (80.0-100.0); MEAN PLATELET VOLUME 10.4 fL (7.4-10.4); MONOCYTES 7.2 % (2-11); NEUTROPHILS 64.7 % (40-80); PLATELET COUNT 196 10x3/uL (130-400); RDW 14.1 % (11.5-14.5); WBC 10.6 10x3/uL (4.8-10.8)
--- NOTE | 2017-09-24 07:38 | NUR ---
RECIEVED REPORT ON PATIENT, PATIENT IS SLEEPING AT THIS TIME, NAD NOTED. CHEST RISES AND FALLS EQUALLY. PATIENT HAS A L CHEST IP SL AT THIS TIME. SR ON MONITOR WITH A RATE OF 63. BED IS LOW AND LOCKED. CALL LIGHT IN REACH. WILL CONT TOMONITOR PATIENT. CPOC
[2017-09-24 08:48] VITALS: BP 122/60
--- NOTE | 2017-09-24 10:00 | NUR ---
MORNING MEDICATIONS GIVEN AND CRUSHED THROUGH PEG TUBE. PATIENT TOLERATED WELL. RESIDUAL CHECKED 0CC. MEDICATION FLUSHED WITH 60 CC OF H20. PATIENT DENIES ANY NEEDS. PAIN 10/10, PAIN MEDICATION GIVEN. WILL CONT TO MONITOR PATIENT. CPOC
--- NOTE | 2017-09-24 11:45 | NUR ---
TUBE FEEDING GIVEN PER ORDER, 0CC RESIDUAL. PATIENT TOLERATED WELL. DENIES ANY NEEDS. CPOC
[2017-09-24 12:48] VITALS: BP 95/53
--- NOTE | 2017-09-24 13:30 | NUR ---
PATIENT AMBULATING HALLWAY, STATES SHE IS LOOKING FOR HER DAUGHTER. BROUGHT PATIENT BACK TO ROOM, INFORMED HER I HAVE NOT SEEN HER DAUGHTER TODAY, AND THAT SHE IS IN THE HOSPITAL. PATIENT STATES UNDERSTANDING AND AGREES TO STAY IN ROOM. WILL MONITOR PATIENT. CPOC
--- NOTE | 2017-09-24 15:45 | NUR ---
PATIENT AMBULATING HALLWAY AGAIN, LOOKING FOR HER DAUGHTER, AGAIN INFORMED PATIENT SHE WAS IN THE HOSPITAL AND THAT I HAVE NOT SEEN HER DAUGHTER TODAY. PATIENT BACK TO ROOM AND CALLED DAUGHTER ON THE PHONE. WILL CONT TO MONITOR PATIENT. CPOC
[2017-09-24 16:50] VITALS: BP 121/52
--- NOTE | 2017-09-24 17:15 | NUR ---
BOLUS TUBE FEED GIVEN PER ORDER. 0CC RESIDUAL. PATIENT TOLERATING WELL. DENIES ANY NEEDS CPOC.
--- NOTE | 2017-09-24 18:20 | NUR ---
PATIENT RESTING AT THIS TIME, AROUSES TO VOICE, INFORMED PATIENT THAT THE SHIFT IS ALMOST OVER, ASKED IF THERE WAS ANYTHING I COULD DO BEFORE I LEAVE, DENIES ANY NEEDS. CPOC
--- NOTE | 2017-09-24 18:45 | NUR ---
ROUNDING NOTE: APPROACHED BT PT'S SON IN THE HALLWAY WITH CONCERNS ABOUT HIS MOTHER'S MEDICATIONS. I WENT THROUGH THE PATIENT'S CURRENT MEDICATION LIST HERE IN THE HOSPITAL COMPARED TO HER HOME MEDICATION LIST IN DETAIL WITH THE SON INCLUDED TIME OF ADMINISTRATION AND DOSAGES. THERE WERE NO DIFFERENCES NOTED BY MYSELF OR BY THE PT'S SON. THE PT'S SON STILL CONTINUED TO EXPRESS CONCERN THAT HER MEDICATIONS "MUST BE OFF BECAUSE HIS MOTHER DOESN'T ACT LIKE THIS." THE PATIENT IS NOTED TO BE BE CONSISTENTLY ATTEMPTING TO GATHER HER BELONGINGS AND LEAVE HER ROOM. SHE IS TRYING TO CARRY HER LARGE GLASS FLOWER VASE INTO THE HALLWAY. SHE ATTEMPTED TO GET ON THE ELEVATOR NUMEROUS TIMES AND NEEDED TO BE REDIRECTED BACK TO HER ROOM. THE PATIENT IS FULLY ALERT AND ORIENTED TO PERSON, PLACE, TIME AND SITUATION, BUT THERE IS SOME LEVEL OF CONFUSION SHE SAYS SOME THINGS THAT DO NOT MAKE SENSE SUCH SHE HEARS HER DAUGHTER SPEAKING TO HER WHEN HER DAUGHTER IS NOT PRESENT. THE PATIENT IS INSISTENT ON LEAVING TONIGHT. PT'S SON EXPLAINS THAT SHE CANNOT LEAVE UNTIL TOMORROW WHEN HER SOLE DYER IS AVAILABLE TO BE WITH HER DURING THE DAY. PT'S SON IS POA AND HE IS NOT WILLING TO DRIVE THE PATIENT HOME. SON WANTS THE TOBACCO CUTTER/MD TO BE CALLED TO DISCUSS MORE PAIN MEDS OR SLEEPING PILLS TO HELP HER CALM DOWN. WILL CONTINUE TO MONITOR.
--- NOTE | 2017-09-24 20:30 | NUR ---
PT CONTINUES TO ATTEMPT TO [facility]OPE FROM THE HOSPITAL. PT MADE IT TO THE LOBBY ONE TIME, BUT WAS ABLE TO REDIRECTED BACK TO HER ROOM SAFELY. BED AND CHAIR ALARMS DO NOT WORK IF THE PATIENT WILL NOT SIT OR LAY DOWN IN HER ROOM. SHE IS VERY MOBILE AND VERY INDEPENDENT WITH HER MOBILITY. SON IS DEMANDING THAT SHE BE DISCHARGED TOMORROW MORNING AT 0700. I EXPLAIN THAT WILL NOT LIKELY HAPPEN THAT IS THE CHANGE OF SHIFT TIME. IN ADDITION, THE DOCTOR IS THE ONE WHO WILL HAVE TO DISCHARGE HER, SO WE CANNOT GUARANTEE WHAT TIME THAT WILL BE. SON CONTINUES TO STRONGLY PUSH FOR AN 0800 D/C TIME. I TOLD HIM THAT WE WILL DO THE BEST THAT WE CAN DO. HE STATES HE WILL TEXT DR. BARCENAS. I ENCOURAGED HIM TO DO WHATEVER HE THINKS MIGHT HELP THE SITUATION FOR HIS MOM. WHILE WORKING WITH PT WHO IS GOING TO THE ICU AND WHILE TRYING TO STOP HIS MOM FROM ELOPING, THE PT'S SON BEGINS TO DEMAND A NICER BED FOR HIS MOM. I EXPLAINED THAT WE DON'T HAVE ANY OTHER BEDS AVAILABLE WITHOUT CALLING THE NURSING RIP[employer]W GRADER AND SPECIAL BEDS ARE RESERVED FOR PATIENTS WITH SKIN ISSUES. HE IS REQUESTING AN EGG CRATE. EDDIE PERALTA ASSISTED ME IN CALLING THE RIPSAW GRADER TO REQUEST AN EGG CRATE FOR THIS PATIENT'S LAST NIGHT HERE. NURSING SUP STATED SHE WILL BRING ONE OVER. PT'S SON IS REQUESTING MORE PAIN MEDICINE AND SLEEPING PILLS FOR HIS MOTHER. AFTER REVIEWING PT'S MED LIST AGAIN WITH PT'S SON, I EXPLAINED THAT SHE TAKES QUITE A BIT OF MEDICATION AND IT PROBABLY ISN'T A GOOD IDEA TO ADD MORE AT THIS TIME (SHE TAKE SCHEDULED NORCO 10 QID, NEURONTIN, CELEBREX, KLONOPIN, 9MG OF MELATONIN, STELAZINE, AND SINEMET). SON SEEMS UPSET, BUT AGREES TO WAIT ON ADDING MORE MEDS AT THIS TIME. WILL CONT TO MONITOR.
[2017-09-24 22:46] VITALS: BP 153/67
--- NOTE | 2017-09-24 23:00 | NUR ---
AFTER RECEIVING HER NIGHTTIME MEDS AND NIGHTIME TUBEFEEDING, PT HAS BEEN SLEEPING SOUNDLY WITH NO FURTHER BEHAVIORS. OXYGEN AND BIPAP IN PLACE. WILL CONT TO MONITOR.
--- NOTE | 2017-09-25 03:24 | NUR ---
Dipak MOELLER, GELA NOTIFIED OF RAPID RESPONSE. DR. POSEY AT BS TO EXAMINE L EYE, NO INTERVENTION REQUIRED. PT ANSWERING APPROP NOW, MARILEE EQUALLY. NEW ORDERS FOR AM CXR AND LAB.
[2017-09-25 05:05] VITALS: BP 150/71
[2017-09-25 05:33] LABS: BASOPHILS 0.2 % (0-2); EOSINOPHILS 1.8 % (0-7); HEMATOCRIT 40.1 % (36.0-48.0); HEMOGLOBIN 13.4 g/dL (12-16); IMMATURE GRANULOCYTES 0.2 % (0-5); LYMPHOCYTES 22.3 % (15-50); MCH 30.6 pg (26.0-34.0); MCHC 33.4 g/dL (31.0-37.0); MCV 91.6 fL (80.0-100.0); MEAN PLATELET VOLUME 10.2 fL (7.4-10.4); MONOCYTES 12.6 % (2-11); NEUTROPHILS 62.9 % (40-80); PLATELET COUNT 203 10x3/uL (130-400); RBC 4.38 10x6/uL (4.00-5.40); RDW 14.1 % (11.5-14.5); WBC 9.6 10x3/uL (4.8-10.8)
[2017-09-25 05:41] LABS: CALC OSMOLALITY 281 mosm/kg (275-300); CALCIUM 9.2 mg/dL (8.5-10.1); CARBON DIOXIDE 32.8 mmol/L (21.0-32.0); CHLORIDE - SERUM 102 mmol/L (98-107); CREATININE - SERUM 0.7 mg/dL (0.6-1.3); GLUCOSE 119 mg/dL (74-106); SODIUM 140 mmol/L (136-145); UREA NITROGEN 19 mg/dL (7-18); eGFR NON AFRICAN AMERICAN 86 mL/min (90-120)
[2017-09-25 05:53] LABS: POTASSIUM - SERUM 4.2 mmol/L (3.5-5.1)
--- NOTE | 2017-09-25 05:57 | NUR ---
PT HAS COME OUT OF ROOM X 2 SINCE HER RAPID RESPONSE. PT SEEMS CONFUSED AGAIN AND NEEDS TO BE REORIENTED. PT'S GAIT APPEARS UNSTEADY. MYSELF AND ASSOCIATE FINANCIAL ADVISOR HAVE ASSISTED HER BACK TO BED SAFELY AND REAPPLIED O2 ALONG W/ HER TRIOLOGY. VS REMAIN STABLE. WILL CONT TO CLOSELY MONITOR.
--- NOTE | 2017-09-25 07:15 | NUR ---
RECIEVED REPORT ON PATIENT. PATIENT IS SLEEPING AT THIS TIME, NAD NOTED AT THIS TIME. PATIENT HAS A L CHEST IP THAT IS SL. SR ON MONITOR WITH A RATE OF 60. PATIENT BED IS LOW AND LOCKED AT THIS TIME. BED ALARM ON. CALL LIGHT IN REACH. CPOC
[2017-09-25 08:00] VITALS: BP 114/54
--- NOTE | 2017-09-25 09:00 | NUR ---
MORNING MEDICATIONS GIVEN THROUGH PEG TUBE. NO ISSUES. WILL CONT TO MONITOR PATIENT. PATIENT DENIES ANY NEEDS BESIDES WANTING TO GO HOME. WILL TALK WITH DR NELSON WHEN SHE ARRIVES. CPOC
--- NOTE | 2017-09-25 11:28 | NUR ---
PATIENT SITTING IN CHAIR AT BEDSIDE, RESTING WITH EYES CLOSED BUT EASILY AROUSED WHEN SPOKEN TO. TUBE FEEDING GIVEN. NO REQUESTS AT THIS TIME. CPOC.
--- NOTE | 2017-09-25 11:50 | NUR ---
TUBE FEED GIVEN PER ORDER. PATIENT TOLERATED WELL. NO ISSUES. CPOC
[2017-09-25] MEDS ORDERED: OMNICEF300 MG PO (11:57)
[2017-09-25 12:00] VITALS: BP 102/52
--- NOTE | 2017-09-25 12:22 | NUR ---
PATIENT SITTING UP IN CHAIR, STILL WAITING TO BE DISCHARGED. DR NELSON OKAYED PATIENT TO GO HOME. WAITING ON PAPERWORK. CPOC
--- NOTE | 2017-09-25 13:32 | NUR ---
PATIENT SITTING IN CHAIR AT BEDSIDE. INFUSAPORT HEPLOCKED AND DC'D WITH NO ISSUES. PATIENT HAS NO REQUESTS AT THIS TIME. INFORMED PATIENT HER CAREGIVER IS ON HER WAY AND WE ARE GETTING HER DISCHARGE PAPERWORK READY. PATIENT VOICED UNDERSTANDING. CPOC.
--- NOTE | 2017-09-25 14:39 | NUR ---
PATIENT GIVEN DC PAPERWORK, CAREGIVER HERE FOR PICKUP. PATIENT DENIES ANY QUESTIONS. PATIENT READY FOR DC
--- NOTE | 2017-09-25 14:47 | NUR ---
Patient Name: COMFORT DHILLON Admission Status: ER Accout number: [id number] Admission Date: 09-22-2017 : 1940 Admission Diagnosis:COUGH Attending: FADY ANNE Current LOS: 3 Anticipated DC Date: 09-25-2017 Planned Disposition: Home Primary Insurance: MEDICARE A & B LATE ENTRY: Discharge Planning Comments: * Is the patient Alert and Oriented? Yes 0 * How many steps to enter\exit or inside your home? 2 W/RAMP 0 * PCP DR. BARCENAS 0 * Pharmacy [facility] 0 * Preadmission Environment Home Alone 0 * ADLs Independent 0 * Equipment Cane Nebulizer Oxygen Rolling Walker 0 * Other Equipment HOME AND PORTABLE OXYGEN [facility] - MEDICAL EQUIPMENT PROVIDIDER 0 * List name and contact numbers for known caregivers / representatives who currently or will assist patient after discharge: MYA LEE, SON/POA, 0 * Community resources currently utilized Other [facility] 0 * Please name any agencies selected above. [facility] 6 HOURS PER DAY WEEKDAYS, 4 HOURS PER DAY WEEKENDS. 0 * Additional services required to return to the preadmission environment? No 0 * Can the patient safely return to the preadmission environment? Yes 0 * Has this patient been hospitalized within the prior 30 days at any hospital? Yes 0 CM MET WITH PT IN ROOM TO DISCUSS DISCHARGE PLANNING AND NEEDS. PT REPORTS LIVING AT HOME INDEPENDENTLY AND ALONE. PT REPORTS HAVING ALL NEEDED MEDICAL EQUIPMENT FROM [facility] [place]. PT REPORTS HAVING NO OUTSIDE SERVICES ASSISTING IN THE HOME [employer] CANCELLED HER SERICES BECAUSE PT WAS EATING WHAT SHE WAS NOT SUPPOSSED TO BE EATING. PT REPORTS HAVING ALL NEEDED ASSISTANCE AT HOME FROM [facility]. CM DISCUSSED AVAILABILITY OF HOME HEALTH, REHAB SERVICES AND MEDICAL EQUIPMENT. PT DENIES DISCHARGE NEEDS, REPORTS HAVING HOUSECALLS AND HER CAREGIVER WILL PICK HER UP FOR DISCHARGE HOME TODAY. PT REPORTS SHE HAS TALKED TO HER SON ALREADY TODAY AND HE IS AWARE. IMPORTANT MESSAGE FROM MEDICARE PROVIDED AND EXPLAINED. Aerial Advertiser: Charles Murphy
== END 2017-09-25 14:40 | disposition home or self-care (01) | DRG 190 ==
LOC: D.ER 13:37 → OBSVTIME 18:12 → D.M2 18:12
PROVIDERS: Emergency Medicine; Family Medicine; ADMIT Emergency Medicine
DX: J44.0 Chronic obstructive pulmonary disease with (acute) lower respiratory infection (principal); J18.9 Pneumonia, unspecified organism; G47.33 Obstructive sleep apnea (adult) (pediatric); I11.0 Hypertensive heart disease with heart failure; I50.9 Heart failure, unspecified; I25.10 Atherosclerotic heart disease of native coronary artery without angina pectoris; F32.9 Major depressive disorder, single episode, unspecified; G20 Parkinson's disease; M79.7 Fibromyalgia

== ENCOUNTER → 2017-11-28 17:51 | Outpatient (CLI) | payer MEDICARE, OTHER, MEDICAID ==
[2017-09-22 10:39] VITALS: BMI 30.2
[~2017-11-28 17:51] MED LIST changes: +LINZESS145 MCG PO; +OMNICEF300 MG PO
== END | disposition home or self-care (01) ==
LOC: D.LABREF 17:51
DX: J44.0 Chronic obstructive pulmonary disease with (acute) lower respiratory infection (principal); I50.9 Heart failure, unspecified

== ENCOUNTER 2017-12-10 07:41 | Outpatient (CLI) | payer MEDICARE, OTHER, MEDICAID ==
[~2017-12-10] VITALS: Ht 162.6 cm; Wt 72.6 kg
[~2017-12-10 07:41] MED LIST changes: -LINZESS145 MCG PO
[2017-12-10] MEDS ORDERED: LINZESS145 MCG PO (08:29)
[2017-12-10 08:36] VITALS: BP 159/97; Ht 162.6 cm; Wt 72.6 kg
== END 2017-12-10 10:20 | disposition home or self-care (01) ==
LOC: D.OPS 07:41 → EDSTATUS 08:00 → D.OPS 10:20
DX: K94.23 Gastrostomy malfunction (principal)

== ENCOUNTER → 2017-12-25 14:45 | Outpatient (CLI) | payer MEDICARE, OTHER, MEDICAID ==
[2017-12-10 08:36] VITALS: BMI 27.5
[~2017-12-25 14:45] MED LIST changes: +LINZESS145 MCG PO
[2017-12-25 15:17] LABS: APPEARANCE CLEAR (CLEAR); BILIRUBIN NEGATIVE (NEGATIVE); COLOR YELLOW (YELLOW); GLUCOSE NEGATIVE (NEGATIVE); KETONE NEGATIVE (NEGATIVE); NITRITE NEGATIVE (NEGATIVE); PROTEIN NEGATIVE (NEGATIVE); UROBILINOGEN NORMAL (NORMAL)
== END | disposition home or self-care (01) ==
LOC: D.LABREF 14:45
PROVIDERS: Family Medicine
DX: N39.0 Urinary tract infection, site not specified (principal)

== ENCOUNTER → 2018-01-17 09:22 | Outpatient (CLI) | payer MEDICARE, OTHER ==
[2017-12-10 08:36] VITALS: BMI 27.5
== END | disposition home or self-care (01) ==
LOC: D.CT 09:22
DX: R16.0 Hepatomegaly, not elsewhere classified (principal)

== ENCOUNTER → 2018-02-21 08:16 | Outpatient (CLI) | payer MEDICARE, OTHER ==
[~2018-02-21] VITALS: Ht 162.6 cm; Wt 70.5 kg
[2018-02-21 09:36] VITALS: BP 160/84; Ht 162.6 cm; Wt 70.5 kg
[2018-02-21 09:47] LABS: BASOPHILS 0 % (0-2); EOSINOPHILS 0 % (0-7); HEMOGLOBIN 13.8 g/dL (12-16); IMMATURE GRANULOCYTES 0.2 % (0-5); LYMPHOCYTES 8.5 % (15-50); MCH 31.5 pg (26.0-34.0); MCHC 34.5 g/dL (31.0-37.0); MCV 91.3 fL (80.0-100.0); MEAN PLATELET VOLUME 10.2 fL (7.4-10.4); MONOCYTES 4.5 % (2-11); NEUTROPHILS 86.8 % (40-80); PLATELET COUNT 188 10x3/uL (130-400); RBC 4.38 10x6/uL (4.00-5.40); WBC 9.4 10x3/uL (4.8-10.8)
[2018-02-21 09:50] LABS: INR 1.07 (0.85-1.17); PROTIME 13.3 SECONDS (11.6-15.0)
[2018-02-21 09:52] LABS: APTT 25.3 SECONDS (22.8-39.4)
[2018-02-21 10:09] LABS: ANION GAP 13.9 mmol/L (8-16); CALCIUM 9.4 mg/dL (8.5-10.1); CARBON DIOXIDE 27.3 mmol/L (21.0-32.0); CREATININE - SERUM 0.8 mg/dL (0.6-1.3); POTASSIUM - SERUM 4.2 mmol/L (3.5-5.1)
== END | disposition home or self-care (01) ==
LOC: D.SP 08:16
PROVIDERS: Specialist
DX: R16.0 Hepatomegaly, not elsewhere classified (principal); C22.0 Liver cell carcinoma; Z01.812 Encounter for preprocedural laboratory examination